=== PATIENT | male | born 1945 | race Caucasian/White ===

== ENCOUNTER 2020-05-30 21:40 | Inpatient (IN) | payer MEDICARE, OTHER ==
[~2020-05-30] VITALS: Ht 177.8 cm; Wt 71.7 kg
[2020-05-30 22:14] LABS: BASOPHILS % (AUTO) 0.5 % (0.0-2.0); EOSINOPHILS % (AUTO) 1.2 % (0.0-6.0); HEMATOCRIT 32 % (39-51); HEMOGLOBIN 10.7 g/dL (13.5-17.5); LYMPHOCYTES # (AUTO) 0.6 /CMM (0.8-4.8); LYMPHOCYTES % (AUTO) 8.5 % (20.0-44.0); MEAN CORPUSCULAR HGB CONC 33 g/dl (31.0-36.0); MEAN CORPUSCULAR VOLUME 87 fL (80-96); MONOCYTES # (AUTO) 0.4 /CMM (0.1-1.30); NEUTROPHILS # (AUTO) 5.9 /CMM (1.8-8.9); NEUTROPHILS % (AUTO) 83.8 % (43.0-81.0); PLATELET COUNT (AUTO) 109 /CMM (150-450); RED BLOOD CELL COUNT(AUTO) 3.73 MIL/uL (4.5-6.0); WHITE BLOOD COUNT (AUTO) 7.1 K/uL (4.3-11.0)
[2020-05-30 22:19] LABS: CALCIUM, SERUM 8.6 mg/dL (8.5-10.1); CARBON DIOXIDE 28 mmol/L (21-32); CHLORIDE 107 mmol/L (98-107); CREATININE 4.7 mg/dL (0.6-1.3); GLUCOSE 119 mg/dL (74-106); POTASSIUM 5.2 mmol/L (3.5-5.1); SODIUM SERUM 143 mmol/L (136-145); UREA NITROGEN, BLOOD 63 mg/dL (7-18)
--- NOTE | 2020-05-30 22:30 | NUR ---
BIBEMS FROM HOME WITH SOB AND 74% O2. UPON ASSESSMENT PT STATES THAT HE HAS BEEN SOB FOR 2 DAYS AND THE O2 ALLIEVIATES IT. PT ON 4L NC 100%. PT ABLE TO SPEAK IN FULL SENTENCES. PT PRESENTS WITH BLE SWELLING +1. PT ATTACHED TO MONITOR AND POX. CALL LIGHT WITHIN REACH. WILL CONTINUE TO MONITOR.
[2020-05-30 22:32] LABS: ALANINE AMINOTRANSFERASE 20 U/L (12-78); ALBUMIN 3.5 g/dL (3.4-5.0); ALKALINE PHOSPHATASE 132 U/L (46-116); ASPARTATE AMINOTRANSFERASE 13 U/L (15-37); B-TYPE NATRIURETIC PEPTIDE 7314 PG/ML (0-125); BILIRUBIN,DIRECT 0.3 mg/dL (0.0-0.2); BILIRUBIN,TOTAL 0.7 mg/dL (0.2-1.0); TOTAL PROTEIN, SERUM 7.4 g/dL (6.4-8.2)
--- NOTE | 2020-05-30 22:34 | NUR ---
DR PETE CALDERON [phone]
[2020-05-30] MEDS ORDERED: FUROSEMIDE 40 MG/4 ML VIAL ONE (23:19)
[2020-05-30] MEDS ORDERED: NITROGLYCERIN 0.4 MG/TAB BOTTLE SL PRN (23:30)
[2020-05-30] MEDS ORDERED: FUROSEMIDE 40 MG/4 ML VIAL IV ONE (23:30)
[2020-05-30] MEDS ORDERED: INSULIN REGULAR, HUMAN 100 UNIT/ML 10 ML VIAL IV ONE (23:30)
[2020-05-30] MEDS ORDERED: DEXTROSE 50%-WATER 50 ML DISP.SYRIN IVP ONE (23:30)
--- NOTE | 2020-05-30 23:33 | NUR ---
BED ASSIGNMENT 315-1
[2020-05-31] VITALS (19 sets, daily range): BP systolic 115–185; BP diastolic 67–104
--- NOTE | 2020-05-31 00:20 | NUR ---
gave report to WILLIAM Agustin for gonzalez
--- NOTE | 2020-05-31 00:28 | NUR ---
CALL FROM LAB. RAPID COVID NEGATIVE.
--- NOTE | 2020-05-31 01:00 | NUR ---
CREDIT MANAGER NOTES Received patient from ER via [email or web address] accompanied by 2 ER staff. Admitted to tele due to CHF exacerbation. Transferred to bed comfortably. Admission routine done. Admission orders noted and carried out. On tele monitor with 1st degree AV block noted, pt denies any discomfort. On O2 via NC @ 4LPM, saturating at >93%, SOB noted. On fall and aspiration precautions. Will continue to monitor accordingly.
[2020-05-31] MEDS ORDERED: DEXTROSE 50%-WATER 50 ML DISP.SYRIN ONE (01:45)
--- NOTE | 2020-05-31 06:48 | NUR ---
RN CLOSING NOTES Pt asleep, no new unusalities noted. All nursing needs attended, due meds given as ordered. Kept on bed clean, dry and comfortable. Endorsed.
[2020-05-31 07:11] LABS: BASOPHILS % (AUTO) 0.4 % (0.0-2.0); EOSINOPHILS % (AUTO) 0.5 % (0.0-6.0); HEMATOCRIT 34 % (39-51); HEMOGLOBIN 10.9 g/dL (13.5-17.5); LYMPHOCYTES # (AUTO) 0.6 /CMM (0.8-4.8); LYMPHOCYTES % (AUTO) 7.2 % (20.0-44.0); MEAN CORPUSCULAR HGB CONC 32 g/dl (31.0-36.0); MEAN CORPUSCULAR VOLUME 87 fL (80-96); MONOCYTES # (AUTO) 0.6 /CMM (0.1-1.30); NEUTROPHILS # (AUTO) 6.7 /CMM (1.8-8.9); NEUTROPHILS % (AUTO) 83.9 % (43.0-81.0); PLATELET COUNT (AUTO) 115 /CMM (150-450); RED BLOOD CELL COUNT(AUTO) 3.86 MIL/uL (4.5-6.0)
[2020-05-31 07:21] LABS: ALANINE AMINOTRANSFERASE 22 U/L (12-78); ALBUMIN 3.4 g/dL (3.4-5.0); ALKALINE PHOSPHATASE 123 U/L (46-116); ASPARTATE AMINOTRANSFERASE 14 U/L (15-37); BILIRUBIN,TOTAL 0.6 mg/dL (0.2-1.0); CALCIUM, SERUM 8.5 mg/dL (8.5-10.1); CARBON DIOXIDE 30 mmol/L (21-32); CHLORIDE 109 mmol/L (98-107); CREATININE 4.6 mg/dL (0.6-1.3); MAGNESIUM 2.8 mg/dL (1.8-2.4); PHOSPHORUS 6.5 mg/dL (2.5-4.9); POTASSIUM 5.2 mmol/L (3.5-5.1); SODIUM SERUM 145 mmol/L (136-145); TOTAL PROTEIN, SERUM 7.1 g/dL (6.4-8.2); UREA NITROGEN, BLOOD 64 mg/dL (7-18)
[2020-05-31 07:35] LABS: CHOLESTEROL 78 mg/dL (<200); HDL CHOLESTEROL 33 mg/dL (40-60); LDL 24 mg/dL (0-99); THYROID STIMULATING HORMONE 0.134 uIU/mL (0.358-3.74); TRIGLYCERIDES 127 mg/dL (30-150)
--- NOTE | 2020-05-31 07:46 | NUR ---
COMPLETION ENGINEER NOTE PATIENT IN BED RESTING COMFORTABLY. PATIENT IN NO ACUTE DISTRESS. NO SOB NOTED. PATIENT BREATHING IS EVEN AND UNLABORED. PATIENT ON CARDIAC MONITORING READING SINUS RHYTHM 72. PATIENT BED ALARM IS ON. SAFETY PRECAUTIONS IN PLACE. PATIENT BED IS LOCKED AND IN LOWEST POSITION. CALL LIGHT WITHIN REACH. WILL CONTINUE TO MONITOR.
[2020-05-31 08:03] LABS: GLUCOSE 49 mg/dL (74-106)
--- NOTE | 2020-05-31 08:54 | NUR ---
AUTOMOBILE MECHANIC ASSISTANT NOTE RECEIVED CALL FROM LAB BLOOD GLUCOSE WAS 49. CHECKED BLOOD SUGAR AND GAVE APPLE JUICE TO PATIENT. CURRENT BLOOD SUGAR IS 102.
[2020-05-31] MEDS ORDERED: FUROSEMIDE 40 MG/4 ML VIAL IV SCH (09:00)
[2020-05-31] MEDS ORDERED: BUMETANIDE INJ 8 MG in IV NS 0.9% 48 ML IV ONE (09:00)
--- NOTE | 2020-05-31 09:00 | NUR ---
TRANSPORT CONDUCTOR NOTE DR. KASPER MADE AWARE OF RECENT LOW BLOOD GLUCOSE AND CURRENT BLOOD SUGAR. PER DR. MAJO CHANG ORDER FOR MILD SLIDING SCALE ACCUCHECKS ACHS.
[2020-05-31] MEDS: HEPARIN SODIUM, PORCINE 5000 UNITS/1 ML VIAL SQ SCH (09:53)
[2020-05-31] MEDS ORDERED: DEXTROSE 50%-WATER 50 ML DISP.SYRIN IV PRN ×2 (10:00→22:30)
[2020-05-31] MEDS ORDERED: INSULIN REGULAR, HUMAN 100 UNIT/ML 3 ML VIAL SQ PRN (10:00)
--- NOTE | 2020-05-31 10:50 | NUR ---
MALE PT INTUBATED BY TERESITA CHANG WITH 7.5 ET-TUBE SECURED AT 26CM. B/S EQUAL PT PLACED ON VENT SETTINGS ORDERED ALARMS SET AND AUDIBLE. POWER TO RED OUTLET. AMBU-BAG AT HEAT OF BED. ZERO RESP DISTRESS NOTED. Addendum: 05/31/20 at 1346 by MICHEAL BUNDY RT Amended: Links added.
--- NOTE | 2020-05-31 10:50 | NUR ---
CLINICAL PHARMACIST REC'D PT FROM 3RD FLOOR BY HILARY WITH MONITOR. REPORT REC'D FROM 3W RN. PT WITH AGONAL RESPIRATIONS. EVALUATED BY DR ARREOLA. PT INTUBATED BY DR MANCILLA. PLACED ON VENT. OGT PLACED. CXR OBTAINED FOR PLACEMENT.
--- NOTE | 2020-05-31 11:00 | NUR ---
CARRY OUT CLERK NOTE WHEN SPEAKING TO PATIENT AT 1013, PATIENT WAS LETHARGIC AND UNRESPONSIVE. I CHECKED BP AND IT WAS 116/68 AND HR 73, BLOOD SUGAR WAS 144, AND THEN O2 SATURATION WAS 46%SPO2 ON 4L NC. QUICKLY CHANGED TO NONREBREATHER 15L O2. PATIENT O2 SATURATION WENT UP TO 70% SPO2 AND THEN RAPID RESPONSE WAS CALLED AT 1015. VALERIA RT AND DENISA RT, ICU NURSE ORALIA PRESENT, CARSON KOSHER DIETARY SERVICE SUPERVISOR, LEAH WILBURN, BALAJI RN, JAQUELINE RN, SUSY RN, RICHARD NELSON DNP, AND MD AMRITA MANCILLA PRESENT AT 1016. PATIENT BP AT 1020 WAS 139/70, HR 76, O2 SATURATION WAS 80%. PATIENT WAS STILL NON RESPONSIVE. PER AMRITA MANCILLA ORDER FOR ABGS AND CHEST XRAY. PER MD AMRITA MANCILLA PREPARE FOR INTUBATION. PATIENT BEING BAGGED WITH OXYGEN AND PREPARED FOR INTUBATION BUT PATIENT STARTED TO BECOME MORE RESPONSIVE, SLIGHT VOICE HEARD AND MOVEMENT WITH EXTREMITIES AND O2 SATURATION WAS 97% SPO2. PER AMRITA MANCILLA STOP INTUBATION DUE TO RESPONSIVENESS AND TRANSFER TO ICU. AMRITA MANCILLA STATED " THIS IS NOT A CODE BLUE, PATIENT WITH PULSE DO NOT INTUBATE". PATIENT BP AT 1030 WAS 144/77 AND HR 81. REPORT WAS GIVEN TO ORALIA WHO IS TAKING OVER FOR ASSUMPTION OF CARE IN ICU. PATIENT TRANSFERRED AT [address] ARREOLA CAME AND SAW PATIENT IN ICU AND WANTS TO INTUBATE AND WILL SPEAK TO AMRITA MANCILLA. ENDORSED REST OF CARE TO ICU NURSE EDGARDO. I SPOKE WITH SISTER PALOMO AND UPDATED ON PATIENT CONDITION AND SITUATION. SHE IS MADE AWARE. DR. KASPER IS MADE AWARE OF SITUATION AND CONDITION. Addendum: 05/31/20 at 1213 by DANTE PACHECO RN CARRY OUT CLERK NOTE WHEN SPEAKING TO PATIENT AT 1013, PATIENT WAS LETHARGIC AND UNRESPONSIVE. I CHECKED BP AND IT WAS 116/68 AND HR 73, BLOOD SUGAR WAS 144, AND THEN O2 SATURATION WAS 46%SPO2 ON 4L NC. QUICKLY CHANGED TO NONREBREATHER 15L O2. PATIENT O2 SATURATION WENT UP TO 70% SPO2 AND THEN RAPID RESPONSE WAS CALLED AT 1015. VALERIA RT AND DENISA RT, ICU NURSE ORALIA PRESENT, CARSON KOSHER DIETARY SERVICE SUPERVISOR, LEAH WILBURN, BALAJI RN, JAQUELINE RN, SUSY RN, RICHARD NELSON DNP, AND MD AMRITA MANCILLA PRESENT AT 1016. PATIENT BP AT 1020 WAS 139/70, HR 76, RR 8, O2 SATURATION WAS 80%. PATIENT WAS STILL NON RESPONSIVE. PER AMRITA MANCILLA ORDER FOR ABGS AND CHEST XRAY. PER MD AMRITA MANCILLA PREPARE FOR INTUBATION. PATIENT BEING BAGGED WITH OXYGEN AND PREPARED FOR INTUBATION BUT PATIENT STARTED TO BECOME MORE RESPONSIVE, SLIGHT VOICE HEARD AND MOVEMENT WITH EXTREMITIES AND O2 SATURATION WAS 97% SPO2. PER AMRITA MANCILLA STOP INTUBATION DUE TO RESPONSIVENESS AND TRANSFER TO ICU. AMRITA MANCILLA STATED " THIS IS NOT A CODE BLUE, PATIENT WITH PULSE DO NOT INTUBATE". PATIENT BP AT 1030 WAS 144/77 AND HR 81. REPORT WAS GIVEN TO ORALIA WHO IS TAKING OVER FOR ASSUMPTION OF CARE IN ICU. PATIENT TRANSFERRED AT [address] ARREOLA CAME AND SAW PATIENT IN ICU AND WANTS TO INTUBATE AND WILL SPEAK TO AMRITA MANCILLA. ENDORSED REST OF CARE TO ICU NURSE EDGARDO. I SPOKE WITH SISTER PALOMO AND UPDATED ON PATIENT CONDITION AND SITUATION. SHE IS MADE AWARE. DR. KASPER IS MADE AWARE OF SITUATION AND CONDITION.
[2020-05-31 11:21] LABS: MetHb 0.2 % (0.0-1.5)
[2020-05-31] MEDS: PROPOFOL 100 ML IV PRN ×2 (11:51→16:38)
[2020-05-31] MEDS: BLOOD SUGAR DIAGNOSTIC 1 EACH STRIP IN SCH ×3 (12:03→22:00)
[2020-05-31 13:09] LABS: ABG BASE EXCESS -2.4 mmol/L; ABG OXYGEN SATURATION 98.9 % (92.0-98.5); ABG PCO2 60.6 mmHg (35.0-45.0); ABG PH 7.241 (7.350-7.450); ABG PO2 203.1 mmHg (75.0-100.0); AaDO2 449.3 mmHg; COHb 0.3 % (0.5-1.5); O2Hb 98.4 % (94.0-97.0); PEEP,BG 5 cm H2O; SITE, ABG Right Radial; VT, ABG 500 mL
--- NOTE | 2020-05-31 13:38 | NUR ---
This SW spoke with production illustrator Landon regarding this patient. Patient at this time is intubated and uninterviewable. Patient does not have a person to notify, SW will follow-up with patient once patient is interviewable. SW remains available for all needs regarding this patient.
--- NOTE | 2020-05-31 14:58 | NUR ---
RECEIVED REPORT FROM ORALIA THOMAS
[2020-05-31] MEDS ORDERED: ALBUTEROL HALF STRENGTH 1.25 MG/3 ML VIAL.NEB NEB SCH (15:00)
--- NOTE | 2020-05-31 16:02 | NUR ---
WHITING CATHETER INSERTED WITH INITIAL OUTPUT OF 1000ML CLEAR YELLOW URINE. NO RESISTANCE. PROCEDURE TOLERATED WELL.
[2020-05-31] MEDS: PIPERACILLIN /TAZOBACTAM 2.255 G in IV D5W 50 ML IV SCH ×2 (16:19→23:39)
--- NOTE | 2020-05-31 16:29 | NUR ---
BP IS CONSISTENTLY HIGH 177/79MMHG. INFORMED WILSTEIN AWAITING ORDERS.
[2020-05-31] MEDS: ALBUTEROL HALF STRENGTH 1.25 MG/3 ML VIAL.NEB NEB SCH ×2 (16:38→19:50)
[2020-05-31] MEDS: IPRATROPIUM NEB FS 0.5 MG/2.5 ML AMPUL.NEB NEB SCH ×2 (16:38→19:50)
--- NOTE | 2020-05-31 17:15 | NUR ---
INFORMED DR KASPER REGARDING BP 177/79 NO NEW ORDERS OF NOW DUE TO DIPRIVAN. PATIENT BLOOD SUGAR 52 ADMINISTERED D50 PER PROTOCOL. WILL CONT TO MONITOR. INFORMED MD IF WE CAN ORDER FLUIDS OR FEEDING.
--- NOTE | 2020-05-31 18:38 | NUR ---
INFORMED DR KASPER BP DID NOT DECREASED WITH DIPRIVAN. HE ORDERED DIETARY CONSULT. NOTED AND CARRIED OUT.
--- NOTE | 2020-05-31 18:42 | NUR ---
DR KASPER ORDERED COREG 6.25MG BID VIA NGT
--- NOTE | 2020-05-31 18:44 | NUR ---
RN CLOSING NOTE - ICU Patient in bed sedated. Has ETT and vent 7.5/23 ac 16 tv 550 fio2 100% Peep 5 tolerating well o2 sat at 100%. Patient is SR 50-60. Mijares catheter drained 1000ml of clear yellow urine. OGT clamped dietary consult ordered Pt now has R IJ dialysis catheter. Has LAC Midline running Diprivan 20mcg/kg/hr. Soft wrist bilateral restraints in place. Safety measures maintained. Bed locked and on lowest position.
[2020-05-31] MEDS: CARVEDILOL 6.25 MG TABLET GT SCH (18:53)
--- NOTE | 2020-05-31 19:05 | NUR ---
RN NOTE RECEIVED PATIENT IN BED RESTING WITH HOB ELEVATED. PATIENT IS SEDATED. VENT DEPENDENT. BREATHING IS EVEN AND UNLABORED. NO SOB NOTED AT THIS TIME. RAPID COVID IS NEGATIVE. IV SITE ON LAC MIDLINE IS CLEAN, DRY, AND PATENT. ON PROPOFOL RUNNING AT 20 MCG/KG/MIN. PATIENT HAS RIGHT IJ TRIPLE LUMEN, PER AM SHIFT RN, PATIENT WILL HAVE DIALYSIS TODAY. PATIENT ON WHITING CATH, URINE IS CLEAR AND PALE YELLOW IN COLOR. IN NO APPARENT DISTRESS NOTED AT THIS TIME. WILL CONTINUE TO MONITOR.
--- NOTE | 2020-05-31 19:30 | NUR ---
RN NOTE ABLE TO RECEIVE CONSENT FOR DIALYSIS FROM PATIENT'S SISTER, PALOMO CALDERON, VIA TELEPHONE AROUND THIS TIME. RN FRANCOISE BLACK WITNESSED AND VERIFIED TELEPHONE CONSENT. PATIENT UNABLE TO SIGN CONSENT DUE TO SEDATION.
--- NOTE | 2020-05-31 22:05 | NUR ---
RN NOTE PATIENT'S GLUCOSE LEVEL IS 66 AROUND THIS TIME. PATIENT IS NPO WITH NO ORAL GASTRIC FEEDING ORDERED AND NO IV HYDRATION ORDERED DUE TO CHF DIAGNOSIS. INFORMED MACHINE SANDER NIRAJ. RECEIVED ORDER TO CHANGE ACCUCHECK TO Q6H AND CONTINUE TO ADMINISTER DEXTROSE 50% NEEDED. ORDER NOTED AND CARRIED OUT.
[2020-06-01] VITALS (36 sets, daily range): BP systolic 82–222; BP diastolic 53–120
[2020-06-01] MEDS ORDERED: BLOOD SUGAR DIAGNOSTIC 1 EACH STRIP IN SCH
[2020-06-01] MEDS: BLOOD SUGAR DIAGNOSTIC 1 EACH STRIP IN SCH ×5 (00:18→23:25)
[2020-06-01] MEDS: IPRATROPIUM NEB FS 0.5 MG/2.5 ML AMPUL.NEB NEB SCH ×7 (01:26→23:34)
[2020-06-01] MEDS: ALBUTEROL HALF STRENGTH 1.25 MG/3 ML VIAL.NEB NEB SCH ×7 (01:26→23:34)
[2020-06-01] MEDS: PROPOFOL 100 ML IV PRN ×2 (04:23→09:34)
[2020-06-01 05:00] LABS: BASOPHILS % (AUTO) 0.5 % (0.0-2.0); HEMATOCRIT 27 % (39-51); HEMOGLOBIN 8.9 g/dL (13.5-17.5); LYMPHOCYTES # (AUTO) 0.8 /CMM (0.8-4.8); LYMPHOCYTES % (AUTO) 15.8 % (20.0-44.0); MEAN CORPUSCULAR HGB CONC 33 g/dl (31.0-36.0); MEAN CORPUSCULAR VOLUME 87 fL (80-96); MONOCYTES # (AUTO) 0.9 /CMM (0.1-1.30); MONOCYTES % (AUTO) 16.6 % (2.0-12.0); NEUTROPHILS # (AUTO) 3.5 /CMM (1.8-8.9); NEUTROPHILS % (AUTO) 66.1 % (43.0-81.0); RED BLOOD CELL COUNT(AUTO) 3.12 MIL/uL (4.5-6.0); WHITE BLOOD COUNT (AUTO) 5.3 K/uL (4.3-11.0)
[2020-06-01 05:12] LABS: ALANINE AMINOTRANSFERASE 17 U/L (12-78); ALBUMIN 2.7 g/dL (3.4-5.0); ALKALINE PHOSPHATASE 106 U/L (46-116); ASPARTATE AMINOTRANSFERASE 16 U/L (15-37); BILIRUBIN,TOTAL 1.3 mg/dL (0.2-1.0); CALCIUM, SERUM 8.2 mg/dL (8.5-10.1); CARBON DIOXIDE 27 mmol/L (21-32); CHLORIDE 106 mmol/L (98-107); CREATININE 3.6 mg/dL (0.6-1.3); GLUCOSE 69 mg/dL (74-106); MAGNESIUM 2.2 mg/dL (1.8-2.4); PHOSPHORUS 2.4 mg/dL (2.5-4.9); POTASSIUM 4.3 mmol/L (3.5-5.1); SODIUM SERUM 143 mmol/L (136-145); TOTAL PROTEIN, SERUM 5.7 g/dL (6.4-8.2); UREA NITROGEN, BLOOD 49 mg/dL (7-18)
[2020-06-01 06:14] LABS: PLATELET COUNT (AUTO) 110 /CMM (150-450)
[2020-06-01 06:17] LABS: LYMPHOCYTES % (MANUAL) 17 % (16-48); MONOCYTES % (MANUAL) 10 % (0-11.0); NEUTROPHILS % (MANUAL) 73 (42-76)
--- NOTE | 2020-06-01 06:34 | NUR ---
RN NOTE PATIENT REMAINED STABLE THROUGHOUT THE NIGHT. KEPT ON PROPOFOL DRIP AT 20 MCS/KG/MIN. ABLE TO MOVE TO LOCALIZED PAIN. NOTED 1 BOWEL MOVEMENT IN THIS SHIFT. 1100 ML OF URINE OUTPUT VIA WHITING CATH, AND 1000 ML OF DIALYSIS FLUID OUTPUT. PATIENT IS KEPT CLEAN, DRY, AND COMFORTABLE. DUE MEDS GIVEN AND TOLERATED WELL. REPOSITIONED Q2H. WILL ENDORSE TO AM SHIFT RN FOR CONTINUATION OF CARE.
--- NOTE | 2020-06-01 07:30 | NUR ---
RN OPENING NOTES RECEIVED PATIENT AWAKE AND ORIENTED X3. WITH HOB ELEVATED. PATIENT IS SEDATED. VENT DEPENDENT. BREATHING IS EVEN AND UNLABORED. NO SOB NOTED AT THIS TIME. RAPID COVID IS NEGATIVE. IV SITE ON LAC MIDLINE IS INTACT. ON PROPOFOL RUNNING AT 20 MCG/KG/MIN. PATIENT HAS RIGHT IJ TRIPLE LUMEN. NO APPARENT DISTRESS NOTED AT THIS TIME. WILL CONTINUE TO MONITOR.
[2020-06-01] MEDS: PIPERACILLIN /TAZOBACTAM 2.255 G in IV D5W 50 ML IV SCH ×3 (08:35→23:06)
[2020-06-01] MEDS: CARVEDILOL 6.25 MG TABLET GT SCH ×2 (09:17→17:41)
[2020-06-01] MEDS: HEPARIN SODIUM, PORCINE 5000 UNITS/1 ML VIAL SQ SCH (09:17)
[2020-06-01 09:34] LABS: ABG BASE EXCESS 2.2 mmol/L; ABG OXYGEN SATURATION 98.6 % (92.0-98.5); ABG PCO2 27.7 mmHg (35.0-45.0); ABG PH 7.558 (7.350-7.450); ABG PO2 143.6 mmHg (75.0-100.0); AaDO2 109.7 mmHg; COHb 1.1 % (0.5-1.5); MetHb 0.1 % (0.0-1.5); O2Hb 97.4 % (94.0-97.0); PEEP,BG 5 cm H2O; SITE, ABG Left Brachial; VT, ABG 500 mL
--- NOTE | 2020-06-01 12:45 | NUR ---
BLOOD SUGAR RESULTS, 83. UNABLE TO UPLOAD RESULTS IN [employer].
--- NOTE | 2020-06-01 14:50 | NUR ---
DR KASPER MADE AWARE OF PHOSPHORUS LEVEL DATED 06/01/2020 WITH NO NEW ORDERS.
--- NOTE | 2020-06-01 18:37 | NUR ---
RN CLOSING NOTES PATIENT REMAINS IN STABLE CONDITION. REMAINS ON PROPOFOL DRIP AT 20 MCS/KG/MIN. ABLE TO MOVE TO LOCALIZED PAIN. NOTED 1 BOWEL MOVEMENT IN THIS SHIFT. 200 ML OF URINE OUTPUT VIA WHITING CATH, AND 0 OF DIALYSIS FLUID OUTPUT. PATIENT IS KEPT CLEAN, DRY, AND COMFORTABLE. DUE MEDS GIVEN AND TOLERATED WELL. REPOSITIONED Q2H. WILL ENDORSE TO NEXT SHIFT FOR DIALLO. Addendum: 06/01/20 at 1857 by HERIBERTO ROSENBAUM RN TO INITIATE TWO WILI HN AT 15ML/HR, WITH GOAL RATE OF 35ML/HR. NO GTF PUMP AVAILABLE AT THIS TIME, LEFT MESSAGE TO CENTRAL SUPPLY, AWAITING FOR FEEDING PUMP, WILL ENDORSE TO NEXT SHIFT.
[2020-06-01] MEDS ORDERED: TWOCAL HN 1,000 ML LIQUID GT PRN (19:00)
--- NOTE | 2020-06-01 19:05 | NUR ---
RN NOTE RECEIVED PATIENT IN BED RESTING WITH HOB ELEVATED. PATIENT IS SEDATED. ON PROPOFOL RUNNING AT 20 MCG/KG/MIN. ABLE TO MOVE TO LOCALIZED PAIN. VENT DEPENDENT. BREATHING IS EVEN AND UNLABORED. NO SOB NOTED AT THIS TIME. RAPID COVID TEST IS NEGATIVE. IV SITE ON LAC MIDLINE IS CLEAN, DRY, AND PATENT. PATIENT HAS RIGHT IJ TRIPLE LUMEN. PATIENT ON WHITING CATH, URINE IS CLEAR AND PALE YELLOW IN COLOR. PATIENT ON DVT PUMPS. IN NO APPARENT DISTRESS NOTED AT THIS TIME. WILL CONTINUE TO MONITOR.
--- NOTE | 2020-06-01 19:50 | NUR ---
RN NOTE NOTED PATIENT AWAKE AND SELF-EXTUBATED AROUND THIS TIME. RT IMMIDIATELY APPLIED NON-REBREATHER MASK AT 15 LITERS O2. PATIENT'S OXYGEN SATURATION IS 98% AT THIS TIME. NO SHORTNESS OF BREATH NOTED. PATIENT IS AWAKE, ALERT, AND ORIENTED X3. VERBALLY RESPONISIVE IN LAO. SPEECH IS CLEAR. PATIENT VERBALIZED, "I'M FEELING A LOT BETTER." WILL CONTINUE TO CLOSELY MONITOR.
--- NOTE | 2020-06-01 19:51 | NUR ---
PT SELF EXTUBATED. PT PLACED ON NRB. PT IS AWAKE ALERT AND TALKING AND ANSWERING QUESTIONS. RN AND MACHINE WASHER AWARE. NO RESP DISTRESS. WILL CONTINUE TO MONITOR.
--- NOTE | 2020-06-01 20:15 | NUR ---
RN NOTE LAMP SHADES SUPERVISOR HOSPITALIST LILA HEALY THREADING MACHINE OPERATOR MADE AWARE OF PATIENT'S SELF-EXTUBATION. RECEIVED ORDER TO KEEP PATIENT NPO. DR. GIORDANO ALSO SAW PATIENT AROUND THIS TIME. RECEIVED NEW ORDER FOR LABETALOL 10 MG IV Q4H PRN FOR SBP > 170. ORDERS NOTED AND CARRIED OUT. WILL CONTINUE TO MONITOR.
--- NOTE | 2020-06-01 21:00 | NUR ---
PT PLACED ON SIMPLE MASK. O2 SAT 100%.
[2020-06-01] MEDS: LABETALOL 20 MG/4 ML VIAL IV PRN (22:14)
[2020-06-02] VITALS (26 sets, daily range): BP systolic 107–194; BP diastolic 50–99
--- NOTE | 2020-06-02 00:06 | NUR ---
TITRATED TO 4L NC. O2 SAT 98%. RN NOTIFIED. WILL CONTINUE TO MONITOR.
[2020-06-02] MEDS: IPRATROPIUM NEB FS 0.5 MG/2.5 ML AMPUL.NEB NEB SCH ×6 (02:59→23:30)
[2020-06-02] MEDS: ALBUTEROL HALF STRENGTH 1.25 MG/3 ML VIAL.NEB NEB SCH ×6 (02:59→23:30)
[2020-06-02] MEDS: LABETALOL 20 MG/4 ML VIAL IV PRN ×2 (05:30→11:11)
[2020-06-02 05:35] LABS: BASOPHILS % (AUTO) 0.4 % (0.0-2.0); EOSINOPHILS % (AUTO) 1.6 % (0.0-6.0); HEMATOCRIT 24 % (39-51); HEMOGLOBIN 7.8 g/dL (13.5-17.5); LYMPHOCYTES # (AUTO) 0.6 /CMM (0.8-4.8); LYMPHOCYTES % (AUTO) 10.7 % (20.0-44.0); MEAN CORPUSCULAR HGB CONC 33 g/dl (31.0-36.0); MEAN CORPUSCULAR VOLUME 87 fL (80-96); MONOCYTES # (AUTO) 0.5 /CMM (0.1-1.30); MONOCYTES % (AUTO) 8.3 % (2.0-12.0); NEUTROPHILS # (AUTO) 4.8 /CMM (1.8-8.9); RED BLOOD CELL COUNT(AUTO) 2.69 MIL/uL (4.5-6.0); WHITE BLOOD COUNT (AUTO) 6.1 K/uL (4.3-11.0)
[2020-06-02 05:39] LABS: PLATELET COUNT (AUTO) 73 /CMM (150-450)
[2020-06-02] MEDS: BLOOD SUGAR DIAGNOSTIC 1 EACH STRIP IN SCH ×3 (05:49→17:35)
[2020-06-02 06:00] LABS: CALCIUM, SERUM 7.6 mg/dL (8.5-10.1); CARBON DIOXIDE 27 mmol/L (21-32); CHLORIDE 104 mmol/L (98-107); CREATININE 3.3 mg/dL (0.6-1.3); GLUCOSE 95 mg/dL (74-106); PHOSPHORUS 3.4 mg/dL (2.5-4.9); POTASSIUM 3.8 mmol/L (3.5-5.1); SODIUM SERUM 139 mmol/L (136-145); UREA NITROGEN, BLOOD 39 mg/dL (7-18)
--- NOTE | 2020-06-02 06:05 | NUR ---
RN NOTE PATIENT'S SBP REMAINS > 180 AT THIS TIME, EVEN AFTER LABETALOL 10 MG IVP Q4H PRN GIVEN ORDERD AROUND 0530. INFORMED SENIOR TAX ACCOUNTANT LILA HEALY, RECEIVED NEW ORDER FOR LABETALOL 10 MG IVP IN 30 MINS, IF SBP STILL > 180, GIVE HYDRALAZINE 5 MG IVP X1. ORDERS NOTED AND CARRIED OUT. WILL ENDORSE TO AM SHIFT RN FOR CONTINUATION OF CARE.
[2020-06-02] MEDS ORDERED: LABETALOL 20 MG/4 ML VIAL IV ONE (07:00)
[2020-06-02] MEDS ORDERED: hydrALAZINE HCL IV 20 MG VIAL IV ONE (07:30)
--- NOTE | 2020-06-02 07:52 | NUR ---
RN INITIAL NOTES RECEIVED PT AWAKE IN BED WITH NNO SIGNS OF ANY DISTRESS. ON o2 INH VIA nc @ 4L/MIN; WELL TOLERATED. WHITING CATH DRAINING THRU GRAVITY. PT REMAINS NPO, PENDING DIETARY CONSULT. SINUS RHYTHM ON THE MONITR. WILL MONITOR
[2020-06-02] MEDS: PIPERACILLIN /TAZOBACTAM 2.255 G in IV D5W 50 ML IV SCH ×3 (08:59→23:58)
[2020-06-02] MEDS: CARVEDILOL 6.25 MG TABLET GT SCH ×2 (09:00→17:26)
[2020-06-02] MEDS ORDERED: HEPARIN SODIUM, PORCINE 5000 UNITS/1 ML VIAL SQ SCH (09:00)
--- NOTE | 2020-06-02 09:06 | NUR ---
RN NOTES HEPARIN ON HOLD; AWAITING FOR MD VERIFICATION
--- NOTE | 2020-06-02 12:57 | NUR ---
rn notes Dr West came and assessed pt; notified md re elevated bp levels; with verbal order to give hyhdralazine 100 mg po tid; to do swallow eval and start diet if passed. also notified re platelet and heparin order; said okay to give heparin. orders noted and carried out
[2020-06-02] MEDS: hydrALAZINE HCL 50 MG TABLET PO SCH ×2 (13:33→17:26)
--- NOTE | 2020-06-02 18:32 | NUR ---
rn closing notes pt awake, remains on o2 inh at 4L/min; no sob. no c/o pain made. diet well tolerated. pt on atb as ordered. dialysis today, dialysis site with clean , intact dressing. afebrile. bp levels wnl. will endorse to next shift for continuity of care, in stable condition.
[2020-06-03] VITALS (29 sets, daily range): BP systolic 85–170; BP diastolic 33–105
[2020-06-03] MEDS: BLOOD SUGAR DIAGNOSTIC 1 EACH STRIP IN SCH ×4 (00:04→17:19)
[2020-06-03] MEDS: IPRATROPIUM NEB FS 0.5 MG/2.5 ML AMPUL.NEB NEB SCH ×6 (03:08→23:30)
[2020-06-03] MEDS: ALBUTEROL HALF STRENGTH 1.25 MG/3 ML VIAL.NEB NEB SCH ×6 (03:08→23:30)
[2020-06-03 05:08] LABS: BASOPHILS % (AUTO) 0.5 % (0.0-2.0); EOSINOPHILS % (AUTO) 1.8 % (0.0-6.0); HEMATOCRIT 24 % (39-51); HEMOGLOBIN 7.8 g/dL (13.5-17.5); LYMPHOCYTES # (AUTO) 0.7 /CMM (0.8-4.8); LYMPHOCYTES % (AUTO) 10.3 % (20.0-44.0); MEAN CORPUSCULAR HGB CONC 33 g/dl (31.0-36.0); MEAN CORPUSCULAR VOLUME 88 fL (80-96); MONOCYTES # (AUTO) 0.9 /CMM (0.1-1.30); MONOCYTES % (AUTO) 12.7 % (2.0-12.0); NEUTROPHILS # (AUTO) 5.3 /CMM (1.8-8.9); NEUTROPHILS % (AUTO) 74.7 % (43.0-81.0); PLATELET COUNT (AUTO) 77 /CMM (150-450); RED BLOOD CELL COUNT(AUTO) 2.72 MIL/uL (4.5-6.0)
[2020-06-03 05:35] LABS: CALCIUM, SERUM 8.3 mg/dL (8.5-10.1); CARBON DIOXIDE 27 mmol/L (21-32); CHLORIDE 103 mmol/L (98-107); CREATININE 4.1 mg/dL (0.6-1.3); GLUCOSE 91 mg/dL (74-106); MAGNESIUM 2.4 mg/dL (1.8-2.4); PHOSPHORUS 4.3 mg/dL (2.5-4.9); POTASSIUM 3.9 mmol/L (3.5-5.1); SODIUM SERUM 142 mmol/L (136-145); UREA NITROGEN, BLOOD 55 mg/dL (7-18)
[2020-06-03 08:19] LABS: ABG BASE EXCESS 0.4 mmol/L; ABG PCO2 38.1 mmHg (35.0-45.0); ABG PH 7.429 (7.350-7.450); AaDO2 54.6 mmHg; COHb 2.3 % (0.5-1.5); O2Hb 95.7 % (94.0-97.0); SITE, ABG Left Radial; VENT MODE, BG NASAL CANNULA
[2020-06-03] MEDS: PIPERACILLIN /TAZOBACTAM 2.255 G in IV D5W 50 ML IV SCH ×3 (08:28→23:52)
[2020-06-03] MEDS: CARVEDILOL 6.25 MG TABLET GT SCH ×2 (08:32→17:16)
[2020-06-03] MEDS: hydrALAZINE HCL 50 MG TABLET PO SCH ×4 (08:33→17:20)
--- NOTE | 2020-06-03 10:04 | NUR ---
RN NOTE PT REFUSED HYDRALAZINE, MEDICATIONS RETURNED TO [facility].
--- NOTE | 2020-06-03 10:06 | NUR ---
RN NOTE REPORT GIVEN TO INCOMING SHIFT FOR DIALLO.
[2020-06-03] MEDS ORDERED: AMIODARONE 150 MG in IV D5W 100 ML IV ONE (12:15)
--- NOTE | 2020-06-03 12:17 | NUR ---
Awake and alert. RA sats 94%, no chest pain at this time. Orders and lab results reviewed. Mijares draining, cloudy rigoberto. ST converted to Afib 140s, Dr Hannah informed with Sandra francois to start. Pt without dyspnea. Addendum: 06/03/20 at 1332 by CRISS SORENSEN RN Midline nurse at bedside. Plan for vein mapping on left arm, notice not to use LEFT arm for Dr Spencer in am. Pt updated with plan of care, Amio bolus done. Addendum: 06/03/20 at 1419 by CRISS SORENSEN RN Amio cont initiated, monitoring HR 116 controlled Afib, pt BP 115/85 Addendum: 06/03/20 at 1809 by CRISS SORENSEN RN Informed pt of NPO tonight. Rectal tube applied for diarrhea and pt aware.
[2020-06-03] MEDS: INSULIN REGULAR, HUMAN 100 UNIT/ML 3 ML VIAL SQ PRN ×2 (12:39→17:12)
[2020-06-03] MEDS: AMIODARONE 450 MG in IV D5W 250 ML IV PRN ×2 (14:02→20:59)
--- NOTE | 2020-06-03 20:00 | NUR ---
PHYSICAL THER NOTES PATIENT AWAKE, A/O X4, ABLE TO VERBALIZE NEEDS. TOLERATING ROOM AIR WELL, NO SOB NOTED. RIGHT IJ HD CATH INTACT, DRESSING CLEAN AND DRY, HD NURSE AT BEDSIDE, ONGOING HD TREATMENT, TOLERATING FAIRLY. RUE MIDLINE PATENT AND INTACT, FLUSHED WITH NS, AMIODARONE DRIP TITRATED TO 0.5MG/MIN PER PROTCOL. HR NOTED SINUS RHYTHM WITH PACS, 80-90 BPM, NOTED TO GO IN AND OUT OF AFIB. WHITING CATHETER PATENT AND INTACT, DRAINING YELLOW URINE VIA GRAVITY. CALL LIGHT WITHIN EASY REACH, WILL MONITOR
--- NOTE | 2020-06-03 22:00 | NUR ---
AIRCRAFT WORKER NOTES PATIENT C/O PAIN IN BLE. WARM TO TOUCH UPON PALPATION. LILA HEALY WEB DEVELOPER NOTIFIED REGARDING FINDINGS, PUMPS REMOVED, PENDING DUPLEX OF BLE, BP CUFF MOVED TO RUE. WILL MONITOR CLOSELY
[2020-06-04] VITALS (15 sets, daily range): BP systolic 109–158; BP diastolic 57–86
[2020-06-04] MEDS: BLOOD SUGAR DIAGNOSTIC 1 EACH STRIP IN SCH ×5 (00:03→23:30)
[2020-06-04] MEDS: IPRATROPIUM NEB FS 0.5 MG/2.5 ML AMPUL.NEB NEB SCH ×6 (03:29→23:32)
[2020-06-04] MEDS: ALBUTEROL HALF STRENGTH 1.25 MG/3 ML VIAL.NEB NEB SCH ×6 (03:29→23:32)
[2020-06-04 04:38] LABS: BASOPHILS # (AUTO) 0.1 /CMM (0.0-0.2); BASOPHILS % (AUTO) 0.5 % (0.0-2.0); EOSINOPHILS % (AUTO) 2.7 % (0.0-6.0); HEMATOCRIT 25 % (39-51); HEMOGLOBIN 8.4 g/dL (13.5-17.5); LYMPHOCYTES % (AUTO) 10.8 % (20.0-44.0); MEAN CORPUSCULAR HGB CONC 33 g/dl (31.0-36.0); MEAN CORPUSCULAR VOLUME 87 fL (80-96); MONOCYTES # (AUTO) 1.3 /CMM (0.1-1.30); MONOCYTES % (AUTO) 13.8 % (2.0-12.0); NEUTROPHILS # (AUTO) 6.9 /CMM (1.8-8.9); NEUTROPHILS % (AUTO) 72.2 % (43.0-81.0); PLATELET COUNT (AUTO) 112 /CMM (150-450); RED BLOOD CELL COUNT(AUTO) 2.91 MIL/uL (4.5-6.0); WHITE BLOOD COUNT (AUTO) 9.6 K/uL (4.3-11.0)
[2020-06-04 04:48] LABS: CALCIUM, SERUM 8.4 mg/dL (8.5-10.1); CARBON DIOXIDE 25 mmol/L (21-32); CHLORIDE 101 mmol/L (98-107); CREATININE 4.7 mg/dL (0.6-1.3); GLUCOSE 118 mg/dL (74-106); MAGNESIUM 2.5 mg/dL (1.8-2.4); PHOSPHORUS 4.3 mg/dL (2.5-4.9); POTASSIUM 3.5 mmol/L (3.5-5.1); SODIUM SERUM 139 mmol/L (136-145); UREA NITROGEN, BLOOD 73 mg/dL (7-18)
[2020-06-04 08:26] LABS: ABG BASE EXCESS -1.1 mmol/L; ABG OXYGEN SATURATION 93.1 % (92.0-98.5); ABG PCO2 34.4 mmHg (35.0-45.0); ABG PH 7.439 (7.350-7.450); ABG PO2 70.9 mmHg (75.0-100.0); AaDO2 37.6 mmHg; COHb 1.9 % (0.5-1.5); MetHb 0.3 % (0.0-1.5); O2Hb 91.1 % (94.0-97.0); SITE, ABG Right Femoral; VENT MODE, BG RA
[2020-06-04] MEDS: PIPERACILLIN /TAZOBACTAM 2.255 G in IV D5W 50 ML IV SCH ×3 (08:37→23:40)
[2020-06-04] MEDS: AMIODARONE HCL 200 MG TABLET PO SCH ×2 (08:38→17:48)
[2020-06-04] MEDS: CARVEDILOL 6.25 MG TABLET GT SCH ×2 (08:38→17:47)
[2020-06-04] MEDS: hydrALAZINE HCL 50 MG TABLET PO SCH ×3 (08:38→17:48)
--- NOTE | 2020-06-04 12:49 | NUR ---
PT TAKEN TO SURGERY AT THIS TIME VIA BED. OR NURSE ACCOMPANIED PATIENT
--- NOTE | 2020-06-04 13:14 | NUR ---
REPORT CALLED TO NURSE FOR TRANSFER TO ROOM 307-2 POST SURGERY. BELONGINGS SENT TO 307-2 VIA WEB PROJECT MANAGER AT THIS TIME. PT WILL GO STRAIGHT TO NEW ROOM AFTER SURGERY
[2020-06-04] MEDS ORDERED: HEPARIN SODIUM, PORCINE 1,000 UNIT/ML VIAL ONE (13:20)
[2020-06-04] MEDS ORDERED: LIDOCAINE HCL/MPF 1% 30 ML VIAL IJ ONE (13:20)
[2020-06-04] MEDS ORDERED: ANESTHESIA TRAY IN PYXIS 1 EA TRAY MC ONE (14:03)
--- NOTE | 2020-06-04 17:00 | NUR ---
PT RECEIVED AFTER REPORT RECEIVED FROM KASIA THOMAS. PT TRANSFERRED WITH ALL PERSONAL BELONGINGS. SIDE RAILS UP X2, CALL LIGHT LEFT WITHIN REACH. WILL CONTINUE PLAN OF CARE.
[2020-06-04] MEDS: INSULIN REGULAR, HUMAN 100 UNIT/ML 3 ML VIAL SQ PRN (17:51)
[2020-06-04] MEDS ORDERED: DEXTROSE 50%-WATER 50 ML DISP.SYRIN IV PRN (19:00)
--- NOTE | 2020-06-04 19:52 | NUR ---
CHANGE OF SHIFT REPORT PT RESTING COMFORTABLY IN BED WITH EYES CLOSED. NO S/S OR C/O PAIN OR DISTRESS NOTED. SIDERAILS UP X2, CALL LIGHT LEFT WITHIN REACH. PT KEPT CLEAN, DRY, AND COMFORTABLE. NO SIGNIFICANT CHANGES SINCE PREVIOUS SHIFT. REPORT GIVEN TO VIPUL RN
--- NOTE | 2020-06-04 20:00 | NUR ---
MSRN FULLY AWAKE. TELE DCD. A/O X3 . VERY PLEASANT. FORGETFUL WHITING TO GRAVITY RECTAL TUBE TO GRAVITY. PLAN OF CARE AND MEDICATION REGIMEN DISCUSSED WITH PATIENT, APPEARS TO UNDERSTAND. ALL NEEDS ATTENDED. STABLE FOR NOW. RIGHT CW HD CATH MICHAEL D/I. POSS HD IN AM.
[2020-06-05] MEDS: ALBUTEROL HALF STRENGTH 1.25 MG/3 ML VIAL.NEB NEB SCH ×6 (03:41→23:30)
[2020-06-05] MEDS: IPRATROPIUM NEB FS 0.5 MG/2.5 ML AMPUL.NEB NEB SCH ×6 (03:42→23:30)
[2020-06-05 06:00] LABS: BASOPHILS % (AUTO) 0.3 % (0.0-2.0); EOSINOPHILS % (AUTO) 0.1 % (0.0-6.0); HEMATOCRIT 24 % (39-51); HEMOGLOBIN 7.7 g/dL (13.5-17.5); LYMPHOCYTES # (AUTO) 0.4 /CMM (0.8-4.8); LYMPHOCYTES % (AUTO) 7.6 % (20.0-44.0); MEAN CORPUSCULAR HGB CONC 33 g/dl (31.0-36.0); MEAN CORPUSCULAR VOLUME 88 fL (80-96); MONOCYTES # (AUTO) 0.6 /CMM (0.1-1.30); MONOCYTES % (AUTO) 10.3 % (2.0-12.0); NEUTROPHILS # (AUTO) 4.8 /CMM (1.8-8.9); NEUTROPHILS % (AUTO) 81.7 % (43.0-81.0); PLATELET COUNT (AUTO) 115 /CMM (150-450); RED BLOOD CELL COUNT(AUTO) 2.69 MIL/uL (4.5-6.0); WHITE BLOOD COUNT (AUTO) 5.8 K/uL (4.3-11.0)
[2020-06-05 06:17] LABS: CALCIUM, SERUM 8.3 mg/dL (8.5-10.1); CARBON DIOXIDE 22 mmol/L (21-32); CHLORIDE 100 mmol/L (98-107); CREATININE 5.8 mg/dL (0.6-1.3); GLUCOSE 106 mg/dL (74-106); MAGNESIUM 2.6 mg/dL (1.8-2.4); PHOSPHORUS 7.1 mg/dL (2.5-4.9); POTASSIUM 4.2 mmol/L (3.5-5.1); SODIUM SERUM 138 mmol/L (136-145)
--- NOTE | 2020-06-05 06:20 | NUR ---
REMAINS UNCHANGE SR ON THE MONITOR
[2020-06-05 06:31] LABS: UREA NITROGEN, BLOOD 87 mg/dL (7-18)
[2020-06-05] MEDS: BLOOD SUGAR DIAGNOSTIC 1 EACH STRIP IN SCH ×4 (07:59→22:10)
[2020-06-05 08:00] VITALS: BP 176/81
--- NOTE | 2020-06-05 08:02 | NUR ---
RT Pt refused breathing tx at this time. Sp02 96% HR 91- No SOB noted
[2020-06-05] MEDS: PIPERACILLIN /TAZOBACTAM 2.255 G in IV D5W 50 ML IV SCH (09:14)
[2020-06-05] MEDS: hydrALAZINE HCL 50 MG TABLET PO SCH ×3 (09:15→18:28)
[2020-06-05] MEDS: AMIODARONE HCL 200 MG TABLET PO SCH ×2 (09:16→18:28)
[2020-06-05] MEDS: CARVEDILOL 6.25 MG TABLET GT SCH ×2 (09:17→18:34)
[2020-06-05 16:00] VITALS: BP 141/78
--- NOTE | 2020-06-05 18:00 | NUR ---
received pt. in am alert and oriented x4.bp elevated.pt.antoine. in pt. had dialysis,rectal tube removed.f/c to drainage with good output.stool sent for c-diff toxin.hooked up to tele rhythm sinus with rate of 92.
--- NOTE | 2020-06-05 19:20 | NUR ---
POWERTRAIN DESIGN ENGINEER OPENING NOTES RECEIVED PATIENT IN BED, ALERT AND ORIENTED X 3. VERBALLY RESPONSIVE AND ABLE TO FOLLOW DIRECTION. BREATHING REGULAR AND UNLABORED ON ROOM AIR. RIGHT UPPER ARM MIDLINE INTACT AND PATENT, FLUSHING WELL WITH NO BLEEDING OR S/S OF INFILTRATION NOTED. ON CARDIAC MONITORING WITH NORMAL SINUS RHYTHM AT 89bpm. DENIES PAIN/DISCOMFORT AT THIS TIME. BED LOW AND LOCKED ON SEMI FOWLERS POSITION. CALL LIGHT IN REACH. WILL CONTINUE TO MONITOR.
[2020-06-05 20:00] VITALS: BP 131/65
[2020-06-05 20:38] VITALS: BP 131/65
[2020-06-05] MEDS: INSULIN REGULAR, HUMAN 100 UNIT/ML 3 ML VIAL SQ PRN (22:11)
[2020-06-06] VITALS: BP 128/72
[2020-06-06] MEDS: IPRATROPIUM NEB FS 0.5 MG/2.5 ML AMPUL.NEB NEB SCH ×6 (03:30→23:30)
[2020-06-06] MEDS: ALBUTEROL HALF STRENGTH 1.25 MG/3 ML VIAL.NEB NEB SCH ×6 (03:30→23:30)
[2020-06-06 04:00] VITALS: BP 133/69
[2020-06-06 06:06] LABS: BASOPHILS % (AUTO) 0.8 % (0.0-2.0); EOSINOPHILS % (AUTO) 2.3 % (0.0-6.0); HEMATOCRIT 22 % (39-51); HEMOGLOBIN 7.3 g/dL (13.5-17.5); LYMPHOCYTES # (AUTO) 0.8 /CMM (0.8-4.8); LYMPHOCYTES % (AUTO) 13.1 % (20.0-44.0); MEAN CORPUSCULAR HGB CONC 33 g/dl (31.0-36.0); MEAN CORPUSCULAR VOLUME 89 fL (80-96); MONOCYTES # (AUTO) 0.8 /CMM (0.1-1.30); MONOCYTES % (AUTO) 12.4 % (2.0-12.0); NEUTROPHILS # (AUTO) 4.4 /CMM (1.8-8.9); NEUTROPHILS % (AUTO) 71.4 % (43.0-81.0); PLATELET COUNT (AUTO) 128 /CMM (150-450); WHITE BLOOD COUNT (AUTO) 6.1 K/uL (4.3-11.0)
[2020-06-06 06:15] LABS: CALCIUM, SERUM 8.1 mg/dL (8.5-10.1); CARBON DIOXIDE 22 mmol/L (21-32); CHLORIDE 102 mmol/L (98-107); CREATININE 5.8 mg/dL (0.6-1.3); GLUCOSE 92 mg/dL (74-106); MAGNESIUM 2.5 mg/dL (1.8-2.4); PHOSPHORUS 5.9 mg/dL (2.5-4.9); POTASSIUM 3.5 mmol/L (3.5-5.1); SODIUM SERUM 139 mmol/L (136-145)
[2020-06-06 06:29] LABS: UREA NITROGEN, BLOOD 81 mg/dL (7-18)
[2020-06-06] MEDS: BLOOD SUGAR DIAGNOSTIC 1 EACH STRIP IN SCH ×4 (06:33→22:43)
[2020-06-06] MEDS: INSULIN REGULAR, HUMAN 100 UNIT/ML 3 ML VIAL SQ PRN (06:33)
--- NOTE | 2020-06-06 06:40 | NUR ---
SUPERVISOR DRY CLEANING CLOSING NOTES PATIENT IN BED, ALERT AND ORIENTED X 3. AFEBRILE WITH NO S/S OF DISTRESS OBSERVED. RIGHT UPPER ARM MIDLINE PATENT AND FLUSHING WELL. RIGHT CHEST PERMACATH INTACT WITH NO ACTIVE BLEEDING SEEN. MAINTAINED ON CARDIAC MONITORING WITH NORMAL SINUS RHYTHM AT 92bpm. NO COMPLAINTS OF PAIN/DISCOMFORT REPORTED AT THIS TIME. BED LOW AND LOCKED ON SEMI FOWLERS POSITION. CALL LIGHT IN REACH. WILL ENDORSE TO MORNING SHIFT FOR DIALLO.
[2020-06-06 08:00] VITALS: BP 144/68
[2020-06-06] MEDS: CARVEDILOL 6.25 MG TABLET GT SCH ×2 (10:35→18:40)
[2020-06-06] MEDS: hydrALAZINE HCL 50 MG TABLET PO SCH ×3 (10:36→18:42)
[2020-06-06] MEDS: AMIODARONE HCL 200 MG TABLET PO SCH ×2 (10:37→18:41)
[2020-06-06 16:00] VITALS: BP 141/76
[2020-06-06] MEDS: VANCOMYCIN HCL 125 MG/2.5 ML ORAL.SUSP PO SCH (18:00)
--- NOTE | 2020-06-06 18:00 | NUR ---
RECEIVED PT. IN AM. ALERT AND ORIENTED X4.NO COMPLAINTS OFFERED,RESTING IN BED.VS STABLE.Landon NELSON IN AND ORDERS GIVEN.RECEIVED WORD THIS EDIN. PT. POSITIVE FOR C-DIFF.RN TEXTED TED REGARDING THIS AND RECEIVED IMMEDIATE ORDER FOR ANTIBIOTIC.NO ANTIBIOTIC GIVEN DAY SHIFT. MED NOT HERE.PT. PUT IN ISOLATION.PT INFORMED WELL.
[2020-06-06 20:00] VITALS: BP 116/56
--- NOTE | 2020-06-06 22:45 | NUR ---
MS RN NOTE PATIENT'S BLOOD SUGAR IS 83 MG/DL. ORANGE JUICE GIVEN TO THE PATIENT, TOLERATING WELL. WILL CONTINUE TO MONITOR FOR DIALLO.
[2020-06-07] MEDS: VANCOMYCIN HCL 125 MG/2.5 ML ORAL.SUSP PO SCH ×4 (00:10→17:07)
[2020-06-07] MEDS: IPRATROPIUM NEB FS 0.5 MG/2.5 ML AMPUL.NEB NEB SCH ×5 (03:30→19:30)
[2020-06-07] MEDS: ALBUTEROL HALF STRENGTH 1.25 MG/3 ML VIAL.NEB NEB SCH ×5 (03:30→19:30)
[2020-06-07 04:00] VITALS: BP 149/73
[2020-06-07 05:00] VITALS: BP 149/73
[2020-06-07 06:35] LABS: ABG BASE EXCESS -4.7 mmol/L; ABG OXYGEN SATURATION 95.1 % (92.0-98.5); ABG PCO2 34.4 mmHg (35.0-45.0); ABG PO2 80.1 mmHg (75.0-100.0); AaDO2 28.4 mmHg; COHb 3.3 % (0.5-1.5); MetHb 0.3 % (0.0-1.5); O2Hb 91.7 % (94.0-97.0); SITE, ABG Right Radial; VENT MODE, BG Room Air
[2020-06-07 06:41] LABS: BASOPHILS % (AUTO) 0.6 % (0.0-2.0); HEMATOCRIT 22 % (39-51); HEMOGLOBIN 7.1 g/dL (13.5-17.5); LYMPHOCYTES # (AUTO) 0.8 /CMM (0.8-4.8); LYMPHOCYTES % (AUTO) 10.9 % (20.0-44.0); MEAN CORPUSCULAR HGB CONC 33 g/dl (31.0-36.0); MEAN CORPUSCULAR VOLUME 89 fL (80-96); MONOCYTES # (AUTO) 0.8 /CMM (0.1-1.30); MONOCYTES % (AUTO) 10.7 % (2.0-12.0); NEUTROPHILS # (AUTO) 5.7 /CMM (1.8-8.9); NEUTROPHILS % (AUTO) 75.8 % (43.0-81.0); PLATELET COUNT (AUTO) 125 /CMM (150-450); RED BLOOD CELL COUNT(AUTO) 2.45 MIL/uL (4.5-6.0); WHITE BLOOD COUNT (AUTO) 7.5 K/uL (4.3-11.0)
--- NOTE | 2020-06-07 07:09 | NUR ---
AUTOMOBILE OR TRUCK RENTAL DISPATCHER CLOSING NOTES PATIENT RESTING IN BED, ALERT AND ORIENTED X 3. AFEBRILE WITH NO S/S OF DISTRESS OBSERVED. RIGHT UPPER ARM MIDLINE PATENT AND FLUSHING WELL. RIGHT CHEST PERMA CATH INTACT WITH NO ACTIVE BLEEDING SEEN. MAINTAINED ON CARDIAC MONITORING WITH NORMAL SINUS RHYTHM AT 90bpm. NO COMPLAINTS OF PAIN/DISCOMFORT REPORTED AT NIGHT. WHITING CATH IN PLACE, DRAINING YELLOW COLOR URINE, 400 ML OUTPUT AT NIGHT. BED LOW AND LOCKED ON SEMI FOWLERS POSITION. CALL LIGHT IN REACH. WILL ENDORSE TO AM RN SHIFT FOR DIALLO.
--- NOTE | 2020-06-07 07:15 | NUR ---
EMERGENCY MEDICAL SERVICE COORDINATOR NOTES PATIENT RECEIVED IN BED RESTING COMFORTABLY, ALERT AND ORIENTED X 4. PATIENT ON ROOM AIR WITH EVEN NON-LABORED BREATHING, AND NO COMPLAINTS OF SOB AT THIS TIME. ON GROUP ACCOUNT DIRECTOR, SINUS RHYTHM IN 80'S. PATIENT SKIN WARM AND DRY TO TOUCH. RIGHT UPPER MIDLINE SALINE LOCK, INTACT AND PATENT. WHITING CATHETER IN PLACE AND INTACT, FLOWING URINE BY GRAVITY. ISOLATION PRECAUTIONS IMPLEMENTED. PATENT PRESENTS WITH NO PAIN OR DISCOMFORT AT THIS TIME. SAFETY PRECAUTIONS IMPLEMENTED WITH BED LOCKED, BED IN THE LOWEST POSITION, BILATERAL SIDE RAILS UP, BED ALARM ON, AND CALL LIGHT WITHIN EASY REACH OF PATIENT. WILL CONTINUE TO MONITOR PATIENT.
[2020-06-07 07:34] LABS: CARBON DIOXIDE 22 mmol/L (21-32); CHLORIDE 100 mmol/L (98-107); CREATININE 6.6 mg/dL (0.6-1.3); GLUCOSE 88 mg/dL (74-106); POTASSIUM 3.5 mmol/L (3.5-5.1); SODIUM SERUM 137 mmol/L (136-145)
[2020-06-07 07:40] LABS: UREA NITROGEN, BLOOD 101 mg/dL (7-18)
[2020-06-07 08:00] VITALS: BP 161/82
[2020-06-07] MEDS: BLOOD SUGAR DIAGNOSTIC 1 EACH STRIP IN SCH ×3 (08:01→17:05)
[2020-06-07] MEDS: hydrALAZINE HCL 50 MG TABLET PO SCH ×3 (09:00→17:05)
[2020-06-07] MEDS: CARVEDILOL 6.25 MG TABLET GT SCH ×2 (09:00→17:05)
[2020-06-07] MEDS: AMIODARONE HCL 200 MG TABLET PO SCH ×2 (09:00→17:04)
--- NOTE | 2020-06-07 09:30 | NUR ---
RECORDS ANALYST NOTES HELD ALL BLOOD PRESSURE MEDICATIONS, DUE TO PATIENT HAVING HEMODIALYSIS TODAY, AND WILL CONTINUE TO MONITOR.
[2020-06-07 16:00] VITALS: BP 149/77
[2020-06-07 17:05] VITALS: BP 179/91
--- NOTE | 2020-06-07 17:30 | NUR ---
MS RN NOTES REMOVED [facility] HOSPITALIST RICHARD NELSON, DNP ORDERED, WILL CARRY OUT AND CONTINUE TO MONITOR PATIENT.
--- NOTE | 2020-06-07 19:15 | NUR ---
MS RN NOTES PATIENT IN BED RESTING COMFORTABLY, ALERT AND ORIENTED X 4. PATIENT ON ROOM AIR WITH EVEN NON-LABORED BREATHING, AND NO COMPLAINTS OF SOB AT THIS TIME. PATIENT SKIN KEPT CLEAN, WARM AND DRY TO TOUCH. RIGHT UPPER MIDLINE SALINE LOCK, INTACT AND PATENT. MET ALL OF PATENT'S NEEDS. PATENT PRESENTS WITH NO PAIN OR DISCOMFORT AT THIS TIME. SAFETY PRECAUTIONS IMPLEMENTED WITH BED LOCKED, BED IN THE LOWEST POSITION, BILATERAL SIDE RAILS UP, BED ALARM ON, AND CALL LIGHT WITHIN EASY REACH OF PATIENT. WILL ENDORSE PLAN OF CARE OF DISCHARGE TO UPCOMING RN.
--- NOTE | 2020-06-07 20:00 | NUR ---
MS RN NOTES CALL [facility], AND GAVE REPORT TO RIGO THOMAS, DUE TO PATIENT DISCHARGING AT 2100.
--- NOTE | 2020-06-07 21:25 | NUR ---
MS-RN: DISCHARGE NOTE: PATIENT WAS DISCHARGED TO [facility] TRANSPORTED VIA [employer] PROFESSIONAL ACCOMPANIED BY 2 EMT'S. PATIENT IS ALERT KRISTOPHER ORIENTED X4. NO ACUTE DISTRESS NOTED. MID LINE ON PATEL REMOVED. PRESSURED APPLIED COVERED WITH DRY DRESSING. DISCHARGE INSTRUCTIONS GIVEN TO PATIENT. PATIENT LEFT IN THE UNIT AT 2130.
== END 2020-06-07 21:31 | DRG 981 ==
LOC: ER 21:45 → TELE 05-31 00:17 → ICU 05-31 10:28 → MED 06-04 13:00 → TELE 06-06 14:33 → MED 06-07 11:58
PROVIDERS: ADMIT Registered Nurse; ATTEND Nurse Practitioner Acute Care
PROC: 0BH18EZ Insertion of Endotracheal Airway into Trachea, Via Natural or Artificial Opening Endoscopic (ICD-10-PCS; 2020-05-31)
PROC: 5A1945Z Respiratory Ventilation, 24-96 Consecutive Hours (ICD-10-PCS; 2020-05-31)
PROC: 06HY33Z Insertion of Infusion Device into Lower Vein, Percutaneous Approach (ICD-10-PCS; 2020-05-31)
PROC: 05H533Z Insertion of Infusion Device into Right Subclavian Vein, Percutaneous Approach (ICD-10-PCS; 2020-06-03)
PROC: B546ZZA Ultrasonography of Right Subclavian Vein, Guidance (ICD-10-PCS; 2020-06-03)
PROC: 0JHD3XZ Insertion of Tunneled Vascular Access Device into Right Upper Arm Subcutaneous Tissue and Fascia, Percutaneous Approach (ICD-10-PCS; principal; 2020-06-04)
PROC: 031C3ZF Bypass Left Radial Artery to Lower Arm Vein, Percutaneous Approach (ICD-10-PCS; 2020-06-04)
PROC: 5A1D70Z Performance of Urinary Filtration, Intermittent, Less than 6 Hours Per Day (ICD-10-PCS; 2020-06-04)
PROC: 02HV33Z Insertion of Infusion Device into Superior Vena Cava, Percutaneous Approach (ICD-10-PCS; 2020-06-04)
PROC: B518YZA Fluoroscopy of Superior Vena Cava using Other Contrast, Guidance (ICD-10-PCS; 2020-06-04)
DX: J96.01 Acute respiratory failure with hypoxia (principal); N18.6 End stage renal disease; I50.33 Acute on chronic diastolic (congestive) heart failure; J18.9 Pneumonia, unspecified organism; I13.2 Hypertensive heart and chronic kidney disease with heart failure and with stage 5 chronic kidney disease, or end stage renal disease; J98.11 Atelectasis; I48.92 Unspecified atrial flutter; A04.72 Enterocolitis due to Clostridium difficile, not specified as recurrent; J96.02 Acute respiratory failure with hypercapnia; E11.22 Type 2 diabetes mellitus with diabetic chronic kidney disease; E87.5 Hyperkalemia; I16.0 Hypertensive urgency; D63.1 Anemia in chronic kidney disease; I48.91 Unspecified atrial fibrillation; Z99.2 Dependence on renal dialysis; N40.0 Benign prostatic hyperplasia without lower urinary tract symptoms; Z20.828 Contact with and (suspected) exposure to other viral communicable diseases
CPT/HCPCS: 31720; 36415; 36600; 71045-TC; 80048-TC; 80053-TC; 80061-TC; 80074; 80076-TC; 82728-TC; 82803-TC; 82962-TC; 83540-TC; 83605-TC; 83735-TC; 83880; 84100-TC; 84439-TC; 84443-TC; 84478-TC; 84484-TC; 85025-TC; 85730-TC; 87081-TC; 90935-TC; 93307-TC; 93970-TC; 94760-TC; 94762-TC; 94799-TC; 97112-TC; 97116-TC; 97530-TC; A6403; C1750; C1751; C1769; G0378; J0282; J0360; J0690; J1100; J1644; J1815; J1940; J2405; J2543; J3490; J7030; J7040; J7050; J7060